=== PATIENT | female | born 1990 | race African-American/Black ===

== ENCOUNTER 2017-05-09 18:58 | Emergency (ER) | payer OTHER ==
[~2017-05-09] VITALS: Ht 157.5 cm; Wt 59.0 kg
[2017-05-09 19:28] LABS: URINE SOURCE CLEAN CATCH
[2017-05-09 19:32] LABS: URINE COLOR YELLOW
[2017-05-09 19:33] LABS: URINE APPEARANCE SL HAZY; URINE BILIRUBIN NEG (NEG); URINE BLOOD 4+ (NEG); URINE GLUCOSE NORM (NEG); URINE KETONE NEG (NEG); URINE LEUKOCYTE ESTERASE 1+ (NEG); URINE NITRATE NEG (NEG); URINE PROTEIN NEG (NEG); URINE UROBILINOGEN NORM (NEG)
[2017-05-09 19:53] LABS: URINE SQUAMOUS EPITHELIAL CELL MODERATE /[HPF]; UWBCS1 AUWI 0-2 (0-5)
[2017-05-09 19:54] LABS: CULTURE INDICATED? NO
[2017-05-11 21:42] LABS: CHLAMYDIA TRACH Not Detected (Not Detected); N GONOR Not Detected (Not Detected)
== END 2017-05-09 20:40 | disposition home or self-care (01) ==
LOC: CED 18:58 → CFTX 18:58
PROVIDERS: Nurse Practitioner
DX: N89.8 Other specified noninflammatory disorders of vagina (principal); R30.0 Dysuria; R31.9 Hematuria, unspecified
CPT/HCPCS: 81003; 84703; 87491; 87591; 87808; 87905; 99283